=== PATIENT | male | born 1945 | race Caucasian/White ===

== ENCOUNTER 2019-05-29 11:48 | Outpatient (CLI) | payer MEDICARE ==
--- NOTE | 2019-05-29 12:18 | RAD ---
RIGHT HIP 2 VIEWS: Date: 05/29/2019 HISTORY: Hip pain. FINDINGS: Mild degenerative change seen with mild spurring from the femoral head. Joint space preserved. Femora l head contour normal. No fracture or acute abnormality identified. IMPRESSION: Mild degenerative change right hip. POS: JOSIAH
== END 2019-05-29 11:49 | disposition home or self-care (01) ==
LOC: RAD-FRANK 11:48
PROVIDERS: ATTEND Nurse Practitioner Family
DX: M25.551 Pain in right hip (principal); M16.11 Unilateral primary osteoarthritis, right hip

== ENCOUNTER 2019-07-09 08:37 | Outpatient (CLI) | payer MEDICARE ==
--- NOTE | 2019-07-09 08:59 | RAD ---
RADIOGRAPH LUMBAR SPINE 3 VIEWS: DATE: 07/09/2019 HISTORY: 73-year-old male with low back pain FINDINGS: There are 6 lumbar-type vertebrae. Dysplastic left L6 transverse process pseudoarticulating with left S1 sacral ala. There are degenerative changes at that pseudoarthrosis, with prominent sclerosis and vacuum joint phenomenon. There is a prominent grade 1, almost grade 2 anterolisthesis of L5 on S1 . Mild to moderate disc space narrowing at all levels. Vertebral body heights are maintained. Asymmetrical moderately large endplate marginal osteophytes protrude into the prevertebral space at m ultiple levels. Baastrup's disease throughout all levels. Facet DJD at L5-6. IMPRESSION: 1. Moderate lumbar spondylosis, with multilevel degenerative disc disease, and lower level facet oste oarthrosis. 2. 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 3. Prominent grade 1 spondylolisthesis at L5-6, due to high-grade facet osteoarthrosis at that level.
== END 2019-07-09 08:38 | disposition home or self-care (01) ==
LOC: RAD-FRANK 08:37
PROVIDERS: ATTEND Nurse Practitioner Family
DX: M51.16 Intervertebral disc disorders with radiculopathy, lumbar region (principal); M47.26 Other spondylosis with radiculopathy, lumbar region; M43.16 Spondylolisthesis, lumbar region; Q76.49 Other congenital malformations of spine, not associated with scoliosis
CPT/HCPCS: 72100

== ENCOUNTER 2019-10-09 09:50 | Outpatient (CLI) | payer MEDICARE ==
--- NOTE | 2019-10-09 10:50 | RAD ---
Exam: XR Knee Lt 4 View STANDARD HISTORY: Left knee pain COMPARISON: None FINDINGS: There is tricompartment osteophytosis. Narrowing of the medial joint compartment is present. No acut e fracture, dislocation, or other acute osseous abnormality is identified. IMPRESSION: Osteoarthritis left knee.
== END 2019-10-09 09:51 | disposition home or self-care (01) ==
LOC: RAD-FRANK 09:50
PROVIDERS: ATTEND Nurse Practitioner Family
DX: M25.562 Pain in left knee (principal); M17.12 Unilateral primary osteoarthritis, left knee

== ENCOUNTER 2020-07-06 14:14 | Outpatient (CLI) | payer OTHER ==
--- NOTE | 2020-07-06 15:05 | RAD ---
5 views of the cervical spine: 07/06/2020 COMPARISON: None HISTORY: Chronic pain syndrome FINDINGS: The dens and the C1-2 articulation demonstrate no acute abnormality on the Fuchs view and o pen-mouth odontoid view respectively. Frontal imaging demonstrates significant multilevel bilateral facet and uncovertebral osteophyte form ation. There is disc space narrowing with degenerative endplate change and anterior osteophyte formation at multiple levels within the cervical spine, most prominent at C6-7 and to a lesser degree, C3-4, C4-5, and C5-6. No significant anterolisthesis or retrolisthesis. No prevertebral soft tissue swelling. IMPRESSION: Cervical spine degenerative change as above.
--- NOTE | 2020-07-06 15:42 | CT ---
CT of thecervical spine: 07/06/2020 COMPARISON:None available HISTORY:Neck pain for 2 months TECHNIQUE: Serial axial CT imaging at2 mm intervals from theskull base through the lung apices withou t contrast. Coronal and sagittal reformatted imaging obtained Findings:There is mild mucosal thickening of the alveolar recess on the left. 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 There is degener ative change at the atlantoaxial interspace. The craniocervical junction, the dens, and the cervicothoracic junction demonstrate no acute findings. There is no significant anterolisthesis or re trolisthesis noted within the cervical spine. C2-3: Mild left-sided facet and uncovertebral osteophyte formation. No osseous cause of significant c entral canal or neural foraminal stenosis. There is osseous fusion of the left facet joint. C3-4: Minimal retrolisthesis in the 2-3 mm range. Mild bilateral facet hypertrophy. Mild bilateral un covertebral osteophyte formation. No osseous cause of significant central canal or neural foraminal stenosis. C4-5: Facet and uncovertebral osteophyte formation noted on the right with probable moderate right ne ural foraminal stenosis. Mild left neural foraminal stenosis suspected on the basis of facet and uncovertebral osteophyte formation. No osseous cause of significant central canal stenosis. C5-6: Anterior osteophyte formation noted. No osseous cause of significant central canal or neural f oraminal stenosis. C6-7: There is disc space narrowing with degenerative endplate change, vacuum disc formation, as well as anterior and posterior osteophyte. Bilateral facet and uncovertebral osteophyte formation noted, left greater than right. There is mild/moderate central canal stenosis with mild right and moderate/severe left neural foramin al stenosis. C7-T1: There is disc space narrowing with degenerative endplate change, bilateral facet hypertrophy, and mild anterior/posterior osteophyte formation. There is no osseous cause of significant central canal or neural foraminal stenosis. No acute fracture or evidence of dislocation is noted within the cervical spine. Evaluation for central canal and/or neural foraminal stenosis is limited on routine CT. The imaged lung apices appear unremarkable. Impression:Cervical spine degenerative change as detailed above.
== END 2020-07-06 14:15 | disposition home or self-care (01) ==
LOC: BICCT 14:14
PROVIDERS: ATTEND Family Medicine
DX: G89.4 Chronic pain syndrome (principal); M47.812 Spondylosis without myelopathy or radiculopathy, cervical region
CPT/HCPCS: 72040; 72125

== ENCOUNTER 2021-03-26 18:52 | Emergency (ER) | payer MEDICARE, OTHER | END 2021-03-26 19:52 | disposition home or self-care (01) | LOC: ERS 18:52 | DX: R33.9 Retention of urine, unspecified (principal); T83.098A Other mechanical complication of other urinary catheter, initial encounter | CPT/HCPCS: 51702 ==

== ENCOUNTER 2022-06-07 10:08 | Outpatient (CLI) | payer MEDICARE, OTHER | END 2022-06-07 10:09 | disposition home or self-care (01) | LOC: RAD-FRANK 10:08 | PROVIDERS: ATTEND Nurse Practitioner Family | DX: R06.02 Shortness of breath (principal) | CPT/HCPCS: 71046 ==

== ENCOUNTER 2022-07-14 13:24 | Outpatient (CLI) | payer MEDICARE ==
[2022-07-14] MEDS ORDERED: Iopamidol-370 76% 500 ML 1 ML ONE (17:55)
== END 2022-07-14 13:25 | disposition home or self-care (01) ==
LOC: BICCT 13:24
PROVIDERS: ATTEND Nurse Practitioner Family
DX: J44.9 Chronic obstructive pulmonary disease, unspecified (principal); R06.02 Shortness of breath; R06.00 Dyspnea, unspecified; K86.89 Other specified diseases of pancreas; J90 Pleural effusion, not elsewhere classified; I27.20 Pulmonary hypertension, unspecified; I51.7 Cardiomegaly; I77.4 Celiac artery compression syndrome
CPT/HCPCS: 71260; 82565; Q9967

== ENCOUNTER 2022-09-01 10:46 | Outpatient (CLI) | payer MEDICARE | END 2022-09-01 10:47 | disposition home or self-care (01) | LOC: RAD 10:46 | PROVIDERS: ATTEND Internal Medicine | DX: R06.00 Dyspnea, unspecified (principal); J90 Pleural effusion, not elsewhere classified | CPT/HCPCS: 71046 ==